=== PATIENT | female | born 1975 | race Caucasian/White ===

== ENCOUNTER 2023-04-23 17:58 | Inpatient (IN) | payer OTHER, SELFPAY ==
[2023-04-23 17:59] VITALS: BP 164/148; PULSE 120; RESP 18; TEMP 36.4; O2SAT 96; BMI 29.7
--- NOTE | 2023-04-23 18:46 | EKG12_ITS ---
Test Reason : DYSRHYTHMIA Blood Pressure : / mmHG Vent. Rate : 097 BPM Atrial Rate : 097 BPM P-R Int : 136 ms QRS Dur : 078 ms QT Int : 354 ms P-R-T Axes : 032 068 025 degrees QTc Int : 449 ms Normal sinus rhythm Normal ECG Confirmed by MIGUEL SHEA, PRAKASH ([id number]), dictionary editor RAJI WOLFF ([id number]) on 04/28/2023 9:34:32 AM Referred By: Confirmed By:ANNA RIVERA MD
--- NOTE | 2023-04-23 18:55 | EDS_ITS ---
HPI History of Present Illness Chief Complaint: Substance Abuse Narrative Narrative: 47-year-old female presenting for alcohol detox. She states she chronically drinks 12-24 beers daily for the last 3 to 4 weeks. Prior to this she drank less and more at certain times. She states she has detoxed on her own in the past and has been formally detox as well. She states she will withdrawal but has not had withdrawal seizures. He states her last drink was about 3:00 today. Denies other drug abuse. PFSH PFSH Allergy/AdvReac Type Severity Reaction Status Date / Time No Known Allergies Allergy Verified 04/23/23 17:59 Social History Smoking Status: Current every day smoker tobacco type: cigarettes ROS ROS ED Constitutional Constitutional ED: Denies chills, fever(s) or sweats Eyes Eyes: Denies blurry vision or change in vision ENT ENT ED: Denies ear pain or sore throat Cardiovascular Cardiovascular: Denies chest pain, palpitations or racing heartbeat Respiratory/Chest Respiratory/Chest: Denies cough, dyspnea or sputum Gastrointestinal Gastrointestinal: Denies abdominal pain, constipation, diarrhea, nausea or vomiting Genitourinary Genitourinary ED: Denies dysuria, hematuria or urinary frequency Musculoskeletal Musculoskeletal: Denies arthralgias, myalgias or neck pain Integumentary Denies abscess, Abrasions or rash Neurologic Neurologic: Denies headache(s), paresthesias or weakness Psychiatric Psychiatric: Denies anxiety, depression, suicidal ideation or suicidal thoughts Endocrine Endocrinology: Denies polydipsia or polyuria EXAM Physical Exam Const Vital Signs: 04/23/23 17:59 04/23/23 19:03 Temperature 97.6 F L Temperature Source Temporal Pulse Rate 120 H 75 Respiratory Rate 18 18 Blood Pressure 164/148 H 129/88 H Blood Pressure Mean 153 101 Pulse Ox 96 97 Oxygen Delivery Method Room Air Room Air Positive well nourished General Appearance ED: pallor HEENT Reports moist mucous membranes Eyes PERRL and EOMs intact bilaterally Neck no lymphadenopathy Lymph Lymphatic: no lymphadenopathy noted Chest Wall inspection of chest normal Resp normal respiratory effort and clear to auscultation bilaterally Auscultation: Negative for rales, rhonchi or wheezes Cardio regular rate and regular rhythm GI soft to palpation Neuro oriented x3 and CN's II-XII intact bilaterally Sensorium / Orientation: alert Motor Exam: strength 5/5 throughout Psych mental status grossly normal and thought process normal Skin General Skin Exam: jaundice and pallor MDM MDM MDM Narrative Medical decision making narrative: Patient presenting for alcohol detox. She is hypertensive and tachycardic. She states she does not feel that she is significantly withdrawing at this point. She is nervous. Patient X12 24 beers daily. Appropriate screening lab work was obtained. Patient will be given IV fluids. She is tachycardic at a rate of 120 I will check an EKG to make sure that the sinus rhythm. EKG on my interpretation showed a normal sinus rhythm with a ventricular rate of 97 bpm without sign of ischemic change or ectopy. CBC shows normal white blood cell count, hemoglobin, platelets. CMP showed normal renal function, electrolytes, glucose, LFTs. Lipase is normal. hCG negative. Urine drug screen negative. EtOH 178. Patient still not having significant withdrawal symptoms. Discussed with hospitalist for admission. Impression: 1. EtOH abuse 2. Presentation for EtOH detox Lab Data Attestation: I reviewed the patient's lab results. Labs: Laboratory Results - last 24 hr 04/23/23 04/23/23 19:05 19:10 WBC 8.2 RBC 4.50 Hgb 13.7 Hct 39.8 MCV 88.4 MCH 30.4 MCHC 34.4 RDW Std Deviation 43.3 RDW Coeff of Eli 13.3 Plt Count 372 MPV 9.3 Immature Gran % (Auto) 0.400 Neut % (Auto) 46.6 L Lymph % (Auto) 40.4 [place] % (Auto) 11.0 H Eos % (Auto) 0.9 Baso % (Auto) 0.7 Absolute Neuts (auto) 3.8 Absolute Lymphs (auto) 3.31 Nucleated RBC % 0 Sodium 143 Potassium 3.5 Chloride 109 H Carbon Dioxide 25.0 Anion Gap 9 BUN 12 Creatinine 0.70 Estim Creat Clear Calc 85.99 Est GFR (MDRD) Af Amer 115 Est GFR (MDRD) Non-Af 95 BUN/Creatinine Ratio 17.2 Glucose 138 H Calcium 8.7 Total Bilirubin 0.40 AST 21 ALT 40 Alkaline Phosphatase 98 Total Protein 7.5 Albumin 3.6 Globulin 3.9 Albumin/Globulin Ratio 0.9 Lipase 53 Serum , Qual NEGATIVE Urine Opiates Screen NEGATIVE Urine Methadone Screen NEGATIVE Ur Barbiturates Screen NEGATIVE Ur Phencyclidine Scrn NEGATIVE Ur Amphetamines Screen NEGATIVE MDMA (Ecstasy) Screen NEGATIVE U Benzodiazepines Scrn NEGATIVE Urine Cocaine Screen NEGATIVE U Cannabinoids Screen NEGATIVE Ur Drug Screen Comment Ethyl Alcohol 178.0 Discharge Plan Triage Chief Complaint: Substance Abuse ED Provider: Grover Grover Dx/Rx/DC Orders Primary Care Provider: Care Physician,No Primary Referrals: Care Physician,No Primary [Primary Care Provider] -
[2023-04-23 19:03] VITALS: BP 129/88; PULSE 75; RESP 18; O2SAT 97
[2023-04-23] MEDS: 0.9% Normal Saline (1000mL) 1,000 ML 999 ML IV (19:11)
[2023-04-23 19:24] LABS: Absolute Lymphocyte Count 3.31 X10^3/uL (0.83-4.51); Absolute Neutrophil Count 3.8 X10^3/uL (2.0-7.7); Basophil# 0.06 X10^3/uL; Basophil% 0.7 % (0-1); Eosinophil# 0.07 X10^3/uL; Eosinophils% 0.9 % (0-5); Hematocrit 39.8 % (37-47); Hemoglobin 13.7 g/dL (12.0-15.0); Lymphocyte # 3.31 X10^3/ul (0.83-4.51); Lymphocyte % 40.4 % (19-41); Mean Corp Hgb Conc 34.4 g/dL (32-36); Mean Corpuscular Hgb 30.4 pg (27.0-32.0); Mean Corpuscular Volume 88.4 fL (81-99); Mean Platelet Vol. 9.3 fl (6.2-12.0); NRBC Flagged by Analyzer 0 % (0-5); Neutrophil # 3.83 X10^3/uL (2.7-7.7); Neutrophil % 46.6 % (47-70); Platelet Count 372 K/mm3 (150-450); RBC Distribution Width CV 13.3 % (11.6-14.6); RBC Distribution Width SD 43.3 fl (35.1-43.9); White Blood Count 8.2 K/mm3 (4.4-11.0)
[2023-04-23 19:29] LABS: Amphetamine Urine VISTA NEGATIVE (<1000 ng/mL); Barbiturate Urine VISTA NEGATIVE (< 200 ng/mL); Benzodiazepine Urine VISTA NEGATIVE (< 200 ng/mL); Cocaine Urine VISTA NEGATIVE (< 300 ng/mL); Ecstacy Urine VISTA NEGATIVE (< 500 ng/mL); Methadone Urine VISTA NEGATIVE (< 300 ng/mL); PCP Urine VISTA NEGATIVE (< 25 ng/mL); THC Urine VISTA NEGATIVE (< 50 ng/mL); Vista UDS pH Range 5
[2023-04-23 19:33] LABS: Internal QC Validated? YES +Cl - CLEAR BKGD; Pregnancy, Serum, hCG Quali. NEGATIVE Negative
[2023-04-23 19:43] LABS: ALB/GLOB Ratio 0.9 RATIO (0.9-2.4); AST(SGOT) 21 U/L (15-37); Alanine Aminotransfer ALT/SGPT 40 U/L (13-56); Albumin, Serum 3.6 g/dL (3.2-5.0); Alkaline Phosphatase 98 U/L (45-117); Anion Gap 9 (5-15); BUN 12 mg/dL (7-18); BUN/Creat Ratio 17.2 RATIO (10-20); Calcium,Total 8.7 mg/dL (8.5-10.1); Chloride 109 mmol/L (98-107); EST Glomerular Filtration Rate 95 mL/min (>60); Est Glom Filt Rate - Afr Amer 115 mL/min (>60); Estimated Creatinine Clearance 85.99 ml/min; Globulin 3.9 g/dL (2.2-4.2); Glucose 138 mg/dL (74-106); Lipase 53 U/L (13-75); Potassium 3.5 mmol/L (3.5-5.1); Protein, Total 7.5 g/dL (6.4-8.2); Sodium Level 143 mmol/L (136-145)
--- NOTE | 2023-04-23 19:58 | HP.PCM.HOS_ITS ---
[facility] - General General Date of Admission: 04/23/23 Date of Service: 04/23/23 Chief Complaint: Wants EtOH Detox. HPI Narrative ADRI VALADEZ, is a 47 F with a past medical history of being overweight; with BMI of 29.7 this admission and chronic EtOH Abuse; with patient routinely drinking 12-24 beers/day for the past 3-4 weeks who presents to [facility] complaining of wanting help with alcohol detox. Ms. Valadez reports her last drink was ~3:00 PM today with a MICHEL of 178 mg/dL present on admission. She states she has been able to detox on her own in the past in addition to having formally been enrolled in a detox program. She denies other illicit drug use or a history of seizures. She also denies associated fever, chills, nausea or vomiting. She was then admitted to the general medical floor for treatment under the EtOH Detoxification protocol for a stay that is expected to be greater than 48 hours. [facility], [facility] Home Medications sertraline 50 mg tablet 50 mg PO Q24H 04/23/23 [History Last Taken Unknown] spironolactone 50 mg tablet 50 mg PO DAILY 04/23/23 [History Last Taken Unknown] Allergy/AdvReac Type Severity Reaction Status Date / Time No Known Allergies Allergy Verified 04/23/23 17:59 Social History Smoking Status: Former smoker ROS ROS Narrative Review of systems: General: Feels somewhat generally weak and unwell. Patient denies fevers or chills. HENT: Denies headache, denies stuffy nose, denies sore throat EYES: Denies changes in vision or discharge from eyes. Resp: Denies cough, denies shortness of breath Cardiac: Denies chest pain or palpitations GI: Denies abdominal pain, denies changes in bowel, denies nausea or vomiting : Denies changes in urination Extremity: Denies swelling Musculoskeletal: Patient denies arthralgias or myalgias. Neuro: Denies any numbness/tingling Heme: Denies any bleeding or bruising Skin: Denies rashes Psychiatric: No complaints voiced related to uncontrolled depression or anxiety Endocrine: No polyuria, polydipsia or polyphagia. The rest of the 14 point ROS was negative except for positives in HPI. Vital Signs Vital Signs Vital Signs: 04/23/23 17:59 04/23/23 19:03 Temperature 97.6 F L Temperature Source Temporal Pulse Rate 120 H 75 Respiratory Rate 18 18 Blood Pressure 164/148 H 129/88 H Blood Pressure Mean 153 101 Pulse Ox 96 97 Oxygen Delivery Method Room Air Room Air Weight Weight: 155 lb Body Mass Index (BMI) 29.7 Physical Exam Const alert, oriented x3, no apparent distress, average body habitus and healthy appearing General Appearance: cooperative HEENT normocephalic, head/scalp atraumatic, hearing grossly normal bilaterally, moist oral mucous membranes and oropharynx normal Eyes PERRL and EOMs intact bilaterally Neck no lymphadenopathy and supple Resp normal respiratory effort, no retractions, no use of accessory muscles and clear to auscultation bilaterally Cardio regular rate and regular rhythm GI normal to inspection, nondistended, normoactive bowel sounds, soft to palpation, non-tender and non-distended Extremity normal to inspection and full ROM Skin Skin Narrative: Patient has no evidence of rash at this time. Neuro oriented x3, CN's II-XII intact bilaterally, moves all extremities and no focal motor deficits Sensorium / Orientation: awake, alert, oriented to person, oriented to place and oriented to time Speech: speech normal Motor Exam: strength 5/5 throughout Psych affect normal Results Medical Records Data Attestation: I reviewed the patient's medical records Lab / Micro Data Attestation: I reviewed the patient's lab results. 04/23/23 19:10 04/23/23 19:10 Labs: Laboratory Results - last 24 hr 04/23/23 19:05: Urine Opiates Screen NEGATIVE, Urine Methadone Screen NEGATIVE, Ur Barbiturates Screen NEGATIVE, Ur Phencyclidine Scrn NEGATIVE, Ur Amphetamines Screen NEGATIVE, MDMA (Ecstasy) Screen NEGATIVE, U Benzodiazepines Scrn NEGATIVE, Urine Cocaine Screen NEGATIVE, U Cannabinoids Screen NEGATIVE, Ur Drug Screen Comment 04/23/23 19:10: WBC 8.2, RBC 4.50, Hgb 13.7, Hct 39.8, MCV 88.4, MCH 30.4, MCHC 34.4, RDW Std Deviation 43.3, RDW Coeff of Eli 13.3, Plt Count 372, MPV 9.3, Immature Gran % (Auto) 0.400, Neut % (Auto) 46.6 L, Lymph % (Auto) 40.4, [place] % (Auto) 11.0 H, Eos % (Auto) 0.9, Baso % (Auto) 0.7, Absolute Neuts (auto) 3.8, Absolute Lymphs (auto) 3.31, Nucleated RBC % 0, Sodium 143, Potassium 3.5, Chloride 109 H, Carbon Dioxide 25.0, Anion Gap 9, BUN 12, Creatinine 0.70, Estim Creat Clear Calc 85.99, Est GFR (MDRD) Af Amer 115, Est GFR (MDRD) Non-Af 95, BUN/Creatinine Ratio 17.2, Glucose 138 H, Calcium 8.7, Total Bilirubin 0.40, AST 21, ALT 40, Alkaline Phosphatase 98, Total Protein 7.5, Albumin 3.6, Globulin 3.9, Albumin/Globulin Ratio 0.9, Lipase 53, Serum , Qual NEGATIVE, Ethyl Alcohol 178.0 Assessment & Plan Assessment/Plan (1) Alcohol withdrawal: QUALIFIERS: Complication of substance-induced condition: uncomplicated Qualified Code(s): F10.930 - Alcohol use, unspecified with withdrawal, uncomplicated (2) Chronic alcohol abuse: PLAN: Plan 1. Acute EtOH Withdrawal in the setting of Chronic EtOH Abuse - Admit to general medical floor for treatment under the Alcohol Detoxification protocol. EtOH Cessation will be strongly encouraged. 2. Overweight; with BMI of 29.8 this admission - Weight loss will be recommended. Check TSH. 3. DVT prophylaxis - Lovenox 40 mg sq daily. Total time: Approximately 40 minutes. Charges/Coding Visit Charges Inpatient E&M: 70761 Init Hosp L1
[2023-04-23 20:17] VITALS: BP 134/80; PULSE 97; RESP 16; TEMP 36.6; O2SAT 99
[2023-04-23 21:20] VITALS: BP 131/95; PULSE 91; RESP 16; TEMP 37; O2SAT 96
[2023-04-23] MEDS: 0.9% Normal Saline (1000mL) 1,000 ML 100 ML IV (21:20)
[2023-04-23 21:26] VITALS: BMI 29.4
[2023-04-23] MEDS: traZODone 100 MG Tablet PO (21:43)
[2023-04-23] MEDS: Ibuprofen 200 MG Tablet PO (21:43)
[2023-04-23] MEDS: Phenobarbital 32.4 MG Tablet 64.7999999999999972 MG PO (21:43)
[2023-04-23] MEDS: 0.9% Saline Lock 10 ML Syringe IV (21:45)
[2023-04-24 01:01] VITALS: BP 119/73; PULSE 79; RESP 18; TEMP 37.1; O2SAT 97
[2023-04-24] MEDS: Phenobarbital 32.4 MG Tablet 64.7999999999999972 MG PO ×6 (01:03→22:11)
[2023-04-24 05:30] VITALS: BP 120/83; PULSE 86; RESP 18; TEMP 36.7; O2SAT 98
[2023-04-24] MEDS: 0.9% Normal Saline (1000mL) 1,000 ML 100 ML IV (05:31)
[2023-04-24 08:18] VITALS: BP 118/85; PULSE 88; RESP 16; TEMP 36.8; O2SAT 99
[2023-04-24] MEDS: Enoxaparin 40 MG/0.4 ML Syringe SC (10:19)
[2023-04-24] MEDS: Thiamine Hydrochloride 100 MG Tablet PO (10:19)
[2023-04-24] MEDS: Folic Acid 1 MG Tablet PO (10:19)
--- NOTE | 2023-04-24 10:56 | PN_ITS ---
Subjective Subjective Patient seen and examined. She says she feels better than when she came in. She had no active complaints this morning. Review of systems otherwise negative. She has been treated for acute alcohol withdrawal. Objective Data Objective Data Vital Signs: Vital Signs Temp Pulse Resp BP Pulse Ox O2 Del Method 98.3 F 88 16 118/85 H 99 Room Air 04/24/23 08:18 04/24/23 08:18 04/24/23 08:18 04/24/23 08:18 04/24/23 08:18 04/24/23 08:20 Oxygen Delivery Method Room Air Weight: 155 lb 10.342 oz Body Mass Index (BMI) 29.4 Intake & Output: Intake and Output for Last 24 Hours 04/22/23 04/23/23 04/24/23 23:59 23:59 23:59 Intake Total 1000 / 1000 818.33 / 818.33 Balance 1000 / 1000 818.33 / 818.33 Lab / Micro Data 04/23/23 19:10 04/23/23 19:10 Labs: Laboratory Results - last 24 hr 04/23/23 19:05: Urine Opiates Screen NEGATIVE, Urine Methadone Screen NEGATIVE, Ur Barbiturates Screen NEGATIVE, Ur Phencyclidine Scrn NEGATIVE, Ur Amphetamines Screen NEGATIVE, MDMA (Ecstasy) Screen NEGATIVE, U Benzodiazepines Scrn NEGATIVE, Urine Cocaine Screen NEGATIVE, U Cannabinoids Screen NEGATIVE, Ur Drug Screen Comment 04/23/23 19:10: WBC 8.2, RBC 4.50, Hgb 13.7, Hct 39.8, MCV 88.4, MCH 30.4, MCHC 34.4, RDW Std Deviation 43.3, RDW Coeff of Eli 13.3, Plt Count 372, MPV 9.3, Immature Gran % (Auto) 0.400, Neut % (Auto) 46.6 L, Lymph % (Auto) 40.4, [place] % (Auto) 11.0 H, Eos % (Auto) 0.9, Baso % (Auto) 0.7, Absolute Neuts (auto) 3.8, Absolute Lymphs (auto) 3.31, Nucleated RBC % 0, Sodium 143, Potassium 3.5, Chloride 109 H, Carbon Dioxide 25.0, Anion Gap 9, BUN 12, Creatinine 0.70, Estim Creat Clear Calc 85.99, Est GFR (MDRD) Af Amer 115, Est GFR (MDRD) Non-Af 95, BUN/Creatinine Ratio 17.2, Glucose 138 H, Calcium 8.7, Total Bilirubin 0.40, AST 21, ALT 40, Alkaline Phosphatase 98, Total Protein 7.5, Albumin 3.6, Globulin 3.9, Albumin/Globulin Ratio 0.9, Lipase 53, TSH 1.70, Serum , Qual NEGATIVE, Ethyl Alcohol 178.0 Physical Exam Const alert, oriented x3 and no apparent distress General Appearance: cooperative and well developed HEENT normocephalic, moist oral mucous membranes and oropharynx normal Eyes PERRL and EOMs intact bilaterally Neck no lymphadenopathy and supple Lymph Lymphatic: no lymphadenopathy noted and no lymphedema noted Resp normal respiratory effort, normal air movement and clear to auscultation bilaterally Cardio regular rate, regular rhythm, S1 normal heart sound, S2 normal heart sound and no murmurs GI normal to inspection, nondistended, normoactive bowel sounds, soft to palpation, non-tender and non-distended Extremity normal capillary refill, no clubbing, cyanosis or edema and no calf tenderness General Extremity: no tenderness to palpation of joints or extremities Skin General Skin Exam: no breakdown Neuro CN's II-XII intact bilaterally, no focal motor deficits, no sensory deficits noted and deep tendon reflexes 2+ bilaterally Motor Exam: strength 5/5 throughout and general weakness Psych thought process normal, cooperative and affect normal Appearance: appropriate Assessment & Plan Assessment/Plan (1) Alcohol withdrawal: QUALIFIERS: Complication of substance-induced condition: uncomplicated Qualified Code(s): F10.930 - Alcohol use, unspecified with withdrawal, uncomplicated PLAN: Plan #Acute alcohol withdrawal * on alcohol withdrawal protocol with phenobarbital * adjunctive meds for symptomatic relief * on thiamine, folic acid and multivite * DVT prophylaxis; Lovenox 40 mg daily. Charges/Coding Visit Charges Inpatient E&M: 37433 Subs Hosp L2
--- NOTE | 2023-04-24 11:08 | ADDICTION ---
This procedure writer met with PT to conduct ASAM, MSE, AUDIT, DUDIT assessments and to plan for d/c. PT A+Ox4 and participated actively. All assessments completed and placed in PT's chart. PT plans to f/u with treatment services, however she wanted to discuss it with her family upon d/c. This worker offered a list of resources. Pt is also interested in the Vivitrol shot upon d/c. Vivitrol assessment completed and pt meets criteria. Pt will follow up with [facility] for future Vivitrol injections. PT did not indicate a need for transportation post d/c from [facility].
[2023-04-24 14:11] VITALS: BP 130/82; PULSE 82; RESP 16; TEMP 36.2; O2SAT 97
[2023-04-24 19:30] VITALS: BP 125/90; PULSE 78; RESP 18; TEMP 37.1; O2SAT 99
[2023-04-24 22:10] VITALS: BP 136/85; PULSE 76; RESP 18; TEMP 36.7; O2SAT 99
[2023-04-25] MEDS: Phenobarbital 32.4 MG Tablet 64.7999999999999972 MG PO ×6 (01:59→21:56)
[2023-04-25 02:10] VITALS: BP 113/98; PULSE 81; RESP 18; TEMP 36.7; O2SAT 99
[2023-04-25 05:35] VITALS: BP 108/91; PULSE 67; RESP 18; TEMP 36.7; O2SAT 99
[2023-04-25 10:21] VITALS: BP 116/73; PULSE 79; RESP 16; TEMP 37.1; O2SAT 98
[2023-04-25] MEDS: Thiamine Hydrochloride 100 MG Tablet PO (10:25)
[2023-04-25] MEDS: Enoxaparin 40 MG/0.4 ML Syringe SC (10:25)
[2023-04-25] MEDS: Folic Acid 1 MG Tablet PO (10:25)
--- NOTE | 2023-04-25 11:14 | PN_ITS ---
Subjective Subjective Patient seen and examined. She had no active complaints and had an uneventful night. Review of systems otherwise negative. She has remained hemodynamically stable. Objective Data Objective Data Vital Signs: Vital Signs Temp Pulse Resp BP Pulse Ox O2 Del Method 98.7 F 79 16 116/73 98 Room Air 04/25/23 10:21 04/25/23 10:21 04/25/23 10:21 04/25/23 10:21 04/25/23 10:21 04/25/23 10:21 Oxygen Delivery Method Room Air Weight: 155 lb 10.342 oz Body Mass Index (BMI) 29.4 Intake & Output: Intake and Output for Last 24 Hours 04/23/23 04/24/23 04/25/23 23:59 23:59 23:59 Intake Total 1000 / 1000 3318.33 / 3318.33 700 / 700 Balance 1000 / 1000 3318.33 / 3318.33 700 / 700 Lab / Micro Data 04/23/23 19:10 04/23/23 19:10 Physical Exam Const alert, oriented x3, no apparent distress, average body habitus and healthy appearing General Appearance: cooperative and well developed HEENT normocephalic, head/scalp atraumatic, hearing grossly normal bilaterally, moist oral mucous membranes and oropharynx normal Eyes PERRL and EOMs intact bilaterally Neck no lymphadenopathy and supple Lymph Lymphatic: no lymphadenopathy noted and no lymphedema noted Resp normal respiratory effort, normal air movement, no retractions, no use of accessory muscles and clear to auscultation bilaterally Cardio regular rate, regular rhythm, S1 normal heart sound, S2 normal heart sound and no murmurs GI normal to inspection, nondistended, normoactive bowel sounds, soft to palpation, non-tender and non-distended Extremity normal to inspection, full ROM, normal capillary refill, no clubbing, cyanosis or edema and no calf tenderness General Extremity: no tenderness to palpation of joints or extremities Skin General Skin Exam: no breakdown Neuro oriented x3, CN's II-XII intact bilaterally, moves all extremities, no focal motor deficits, no sensory deficits noted and deep tendon reflexes 2+ bilaterally Sensorium / Orientation: awake, alert, oriented to person, oriented to place and oriented to time Speech: speech normal Motor Exam: strength 5/5 throughout and general weakness Psych thought process normal, cooperative and affect normal Appearance: appropriate Assessment & Plan Assessment/Plan (1) Alcohol withdrawal: QUALIFIERS: Complication of substance-induced condition: uncomplicated Qualified Code(s): F10.930 - Alcohol use, unspecified with withdrawal, uncomplicated PLAN: Plan #Acute alcohol withdrawal * on alcohol withdrawal protocol with phenobarbital * adjunctive meds for symptomatic relief * on thiamine, folic acid and multivite * DVT prophylaxis; Lovenox 40 mg daily. Disposition: dc home tomorrow Charges/Coding Visit Charges Inpatient E&M: 63063 Subs Hosp L2
[2023-04-25 17:48] VITALS: BP 114/76; PULSE 68; RESP 18; TEMP 36.3; O2SAT 95
[2023-04-25 21:55] VITALS: BP 120/84; PULSE 70; RESP 18; TEMP 36.6; O2SAT 96
[2023-04-26 01:51] VITALS: BP 105/92; PULSE 79; RESP 18; TEMP 36.6; O2SAT 96
[2023-04-26] MEDS: Phenobarbital 32.4 MG Tablet 64.7999999999999972 MG PO ×3 (01:53→12:19)
[2023-04-26 05:30] VITALS: BP 102/82; PULSE 69; RESP 18; TEMP 36.6; O2SAT 97
[2023-04-26] MEDS: Folic Acid 1 MG Tablet PO (07:59)
[2023-04-26] MEDS: Thiamine Hydrochloride 100 MG Tablet PO (07:59)
[2023-04-26 10:00] VITALS: BP 114/66; PULSE 70; RESP 15; TEMP 35.9; O2SAT 96
--- NOTE | 2023-04-26 11:07 | DCINST_ITS ---
Discharge Instructions Diet Discharge Diet: Low fat / Low cholesterol Activity Discharge Activity: Return to Normal Activity Weight Bearing Status: Weight bearing as tolerated Dressing / Incision Call your doctor if you observe: Fever of 101 or Higher, Shortness of breath, Dizziness, Swelling in the ankles and Chest pain Follow Up Care Test Results: Test results from this visit will be discussed in further detail at your follow- up appointment, if applicable. Discharge Plan Admission Admit Date/Time: 04/23/23 20:10 Primary Reason for Your Visit: acute alcohol withdrawal Attending Provider: Adelaida Raymond Primary Care Provider: Care Physician,No Primary Consulting Providers: Logan Hernandez Instructions Patient Instructions: Alcohol Addiction Discharge Orders/Prescriptions Prescriptions: Continued sertraline 50 mg tablet 50 mg PO Q24H Patient Comments: Take 0.5 tablets BY MOUTH daily for FOUR days, Then take 1 tablet BY MOUTH daily from then on spironolactone 50 mg tablet 50 mg PO DAILY Referrals / Follow Up: Laith Blum MD [Med Staff - Active Staff] - Within 1 Month (see to establish PCP care) Care Physician,No Primary [Primary Care Provider] - Disposition Disposition (needs filled in before D/C Order can be placed): Home, Self Care
--- NOTE | 2023-04-26 11:08 | DS.PCM_ITS ---
Providers Date of Admission: 04/23/23 Date of Discharge: 04/26/23 Primary Care Physician: [facility] Reason For Visit: IMPENDING ALCOHOL WITHDRAWAL IN SETTING OF CHRONIC Diagnosis Discharge Diagnosis (1) Alcohol withdrawal: Status: Acute Code(s): F10.939 - Alcohol use, unspecified with withdrawal, unspecified Qualifiers: Complication of substance-induced condition: uncomplicated Qualified Code(s): F10.930 - Alcohol use, unspecified with withdrawal, uncomplicated Plan #Acute alcohol withdrawal * on alcohol withdrawal protocol with phenobarbital * adjunctive meds for symptomatic relief * on thiamine, folic acid and multivite * DVT prophylaxis; Lovenox 40 mg daily. Disposition: dc home tomorrow Medications at Discharge Home Medications sertraline 50 mg tablet 50 mg PO Q24H 04/23/23 spironolactone 50 mg tablet 50 mg PO DAILY 04/23/23 Hospital Course Operations None Procedures None Summary of Care Provided Minutes Spent on Discharge: 45 Hospital Course: Patient is a 47 y/o female with a PMH as outlined who was admitted via the ED on 04/23/2023 for help with alcohol withdrawal and detox. She drank ~ 12-24 beerrs daily for about 3-4 weeks prior to admission. Her last drink was ~ 3pm on the day of admission. Blood alcohol level was 178mg/dl on admission. She said she had been able to detox on her own in the past. She denied any historyof illicit drug use. Review of systems was otherwise negative. She was admitted and managed for acute alcohol withdrawal. She was placed on alcohol withdrawal protocol with phenobarbital. She tolerated the 3 day detox process and did well. She remained stable and was discharged on 04/26/2023. She had no PCP and so was referred to [facility] to establish PCP care. Patient seen and examined prior to discharge. She had no active complaints. She was ready for discarge. Review of systems is otherwise negative. Labs and vitals reviewed. Home meds reviewed and reconciled. Physical Exam Const alert, oriented x3, no apparent distress, average body habitus and healthy appearing General Appearance: cooperative, comfortable, well kempt and well developed Exam Limitations: no limitations HEENT normocephalic, head/scalp atraumatic, hearing grossly normal bilaterally, moist oral mucous membranes and oropharynx normal Mouth: oral and palatal mucosa normal Eyes PERRL, EOMs intact bilaterally and conjunctivae normal Neck no lymphadenopathy and supple Lymph Lymphatic: no lymphadenopathy noted and no lymphedema noted Resp normal respiratory effort, normal air movement, no retractions, no use of accessory muscles and clear to auscultation bilaterally Cardio regular rate, regular rhythm, S1 normal heart sound, S2 normal heart sound and no murmurs GI normal to inspection, nondistended, normoactive bowel sounds, soft to palpation, non-tender and non-distended Extremity normal to inspection, full ROM, normal capillary refill, no clubbing, cyanosis or edema and no calf tenderness General Extremity: no tenderness to palpation of joints or extremities Skin no rashes or lesions noted General Skin Exam: no breakdown Neuro oriented x3, CN's II-XII intact bilaterally, moves all extremities, no focal motor deficits, no sensory deficits noted and deep tendon reflexes 2+ bilaterally Sensorium / Orientation: awake, alert, oriented to person, oriented to place and oriented to time Speech: speech normal Motor Exam: strength 5/5 throughout and general weakness Psych thought process normal, cooperative and affect normal Appearance: appropriate Weight / BMI Weight Weight: 155 lb 10.342 oz Body Mass Index (BMI) 29.4 ABG / Lab / Microbiology Data 04/23/23 19:10 04/23/23 19:10 D/C Instructions Discharge Diet: Low fat / Low cholesterol Discharge Activity: Return to Normal Activity Weight Bearing Status: Weight bearing as tolerated Call your doctor if you observe: Fever of 101 or Higher, Shortness of breath, Dizziness, Swelling in the ankles and Chest pain Meaningful Use Info Meaningful Use Diagnoses (Choose all that apply): None applicable Discharge Plan Admission Admit Date/Time: 04/23/23 20:10 Primary Reason for Your Visit: acute alcohol withdrawal Attending Provider: Adelaida Raymond Primary Care Provider: Care Physician,No Primary Consulting Providers: Logan Hernandez Instructions Patient Instructions: Alcohol Addiction Discharge Orders/Prescriptions Prescriptions: Continued sertraline 50 mg tablet 50 mg PO Q24H Patient Comments: Take 0.5 tablets BY MOUTH daily for FOUR days, Then take 1 tablet BY MOUTH daily from then on spironolactone 50 mg tablet 50 mg PO DAILY Referrals / Follow Up: Laith Blum MD [Med Staff - Active Staff] - Within 1 Month (venita koo [facility] care) Care Physician,No Primary [Primary Care Provider] - Disposition Disposition (needs filled in before D/C Order can be placed): Home, Self Care Charges/Coding Visit Charges Inpatient E&M: [id number] Disch Hosp >30min
[2023-04-26 13:59] VITALS: BP 102/64; PULSE 74; RESP 15; TEMP 35.8; O2SAT 95
== END 2023-04-26 14:34 | disposition home or self-care (01) | DRG 775 ==
LOC: ED 19:22 → PCU 20:25
PROVIDERS: Admitting Provider Internal Medicine; Emergency Provider Student in an Organized Health Care Education/Training Program; Visit Provider Student in an Organized Health Care Education/Training Program
DX: F10.130 Alcohol abuse with withdrawal, uncomplicated (principal); E66.3 Overweight; F17.210 Nicotine dependence, cigarettes, uncomplicated; Y90.6 Blood alcohol level of 120-199 mg/100 ml; Z68.29 Body mass index [BMI] 29.0-29.9, adult
CPT/HCPCS: 80053; 80307; 80320; 83690; 84443; 84703; 85025; 93005; 99284; J7030; A4216; G0480